=== PATIENT | female | born 1960 | race Caucasian/White ===

== ENCOUNTER 2021-04-27 06:20 | Day surgery (SDC) | payer BC ==
[~2021-04-27] VITALS: Ht 167.6 cm; Wt 95.7 kg
[~2021-04-27 06:20] MED LIST: 3IN1 COMMODE; ACETAMINOPHEN-1 EAC1 PO; ARMOUR THYROID120 MG PO; ARMOUR THYROID90 MG PO; AVAPRO150 MG PO; BENADRYL25 MG PO; CARAFATE1 GM PO; COZAAR50 MG PO; DHEA 10 MG TAB1 EACH PO; DHEA TABLET1 EACH PO; DIAZEPAM5 MG PO; FLONASE ALLERG9.9 ML NAS; IMITREX100 MG PO; MAGNESIUM OXID400 M1 PO; MELOXICAM15 MG PO; METOPROLOL SUCC50 MG PO; MOBIC7.5 MG PO; NATURE-THROID130 MG PO; PREVACID30 MG PO; PROGESTERONE100 MG PO; PROPAFENONE HC300 MG; PROTONIX40 MG PO; RANITIDINE HCL300 MG PO; RED YEAST RICE600 MG PO; TURMERIC500 M2 PO; TYLENOL WITH C1 EACH PO; VALIUM5 MG PO; WESTHROID PO; XARELTO20 MG PO; ZYRTEC10 MG PO
--- NOTE | 2021-04-27 07:58 | NUR ---
04/27/21 0758 Esme Lagunas 0753-PATIENT ARRIVED TO PACU ON 3L NC REACTIVE TO VERBAL STIMULI DENIES PAIN OR NAUSEA. PLACED ON 2L NC. PATIENT LAYING LEFT LATERAL ABDOMEN SOFT. IV TAPED TO ARM AND INFUSING. NEW 20 GAUGE WAS PLACED IN ENDO ROOM. ENCOURAGED TO PASS GAS. PATIENT DOZES BACK TO SLEEP. PATIENT USES CPAP AT HOME.
--- NOTE | 2021-04-27 08:49 | OR ---
[facility] [address], [place] [address] Signed DATE OF OPERATION: 04/27/2021 SURGEON: Martin Sutton MD PREOPERATIVE DIAGNOSES: 1. Sister with a 1.8 mm rectal carcinoid and colonic polyps, age 62. 2. Maternal aunt with colon cancer in her 70s. 3. Diverticulosis. 4. Personal history of hyperplastic polyps 2012. 5. Irritable bowel syndrome with constipation and diarrhea. POSTOPERATIVE DIAGNOSES: 1. 4 mm polyp at 7 cm. 2. Mild to moderate pandiverticulosis. PROCEDURE: Colonoscopy without biopsy. ESTIMATED BLOOD LOSS: None. INDICATIONS: Jose is a 61-year-old female asked to see me for a followup colonoscopy. She actually developed diverticulitis at the age of 36. She said she was drinking and smoking heavily in those days. She remembers her flexible sigmoidoscopy performed by Dr. Lynch in [place], [place]. In 2008, she had both upper and lower endoscopy with Dr. Godfrey in [place], [place]. She had erosive gastritis from her ibuprofen and was H pylori negative. She also had diverticulosis. She had propofol at that time. I helped her with upper and lower endoscopy in 2012. Again, minimal gastritis and negative H pylori. She had hyperplastic polyps in the colon or rectum. She had done well with Versed and fentanyl. We asked her to follow up in 10 years time given those findings. She had a barium swallow in 2015 with minimal reflux, but no obvious hiatal hernia. I repeated the upper endoscopy in 2015 and again mild inflammation in the duodenum and her stomach and her distal esophagus. Also negative for H pylori. She did well with Versed and fentanyl. In the meantime, she stopped all her stomach medication and says she is doing fine. She describes irritable bowel syndrome with alternating constipation and diarrhea. She reminded me of her sister who had a colonoscopy with myself earlier in this year. Her sister is age 62 with colonic polyps and diverticulosis. She also had a tiny 1.8 mm rectal carcinoid tumor in the rectum that we removed endoscopically. Her maternal aunt also had colon cancer in her 70s. As a result, Jose now is on the Electronically Signed By: MARTIN SUTTON MD 04/27/21 0849 PATIENT NAME: JOSE BOURNE OPERATIVE REPORT DATE OF : 60 REPORT #: [id number] PHYSICIAN: MARTIN SUTTON MD PCP: LETICIA BECKER REPORT IS CONFIDENTIAL AND NOT TO BE RELEASED WITHOUT AUTHORIZATION [facility] [address], [place] [address] Signed five-year colonoscopy rotation. She felt like she had a flare of her left lower quadrant abdominal pain in November 2020. She took Cipro and Flagyl. Her symptoms resolved. However, she stopped the Flagyl after five days because she felt she was having nausea and vomiting. Currently, she has no lower GI complaints. In the office, I gave her a pamphlet on colonoscopy. She understands the nature of the test. There is risk including, but not limited to gas bloating, crampy abdominal pain, bleeding, perforation requiring surgery, and missed diagnosis. She also understands the need for the IV conscious sedation. She had expressed understanding and wished to proceed. PROCEDURE NOTE: Jose was taken into our endoscopy suite and placed in the left lateral decubitus position. She was given a total of 150 mcg of fentanyl and 7 mg of Versed to cover the case. We had a little trouble with our IV during the middle of the case. We started a new IV and therefore she was a little vague at that time. A digital rectal exam was performed and this was unremarkable. She had good sphincter tone. The adult colonoscope was introduced and she had just a tiny 4 mm polyp at 7 cm removed with a hot biopsy forceps. The scope had been advanced all around into the cecum without difficulty. Her prep was good. We could easily see the appendiceal orifice and ileocecal valve. The scope was then slowly withdrawn. She does have mild to moderate pandiverticulosis. They are few in number, moderate in size and scattered about. The scope had been retroflexed in the rectum and there was no additional pathology noted above the anal canal. After this, the gas was suctioned out and colonoscope removed. Camilla tolerated the procedure quite well. RECOMMENDATIONS: It appears Jose will be on the 5-year rotation mainly from her family history. Martin Sutton MD ALB/MODL /[id number] cc: CURLY Ayala MD Electronically Signed By: MARTIN SUTTON MD 04/27/21 0849 PATIENT NAME: JOSE BOURNE OPERATIVE REPORT DATE OF : 60 REPORT #: [id number] PHYSICIAN: MARTIN SUTTON MD PCP: LETICIA BECKER REPORT IS CONFIDENTIAL AND NOT TO BE RELEASED WITHOUT AUTHORIZATION [facility] [address] [place], [place] [address] Signed Copies: LETICIA BECKER ANDREW L MD ~ Electronically Signed By: MARTIN SUTTON MD 04/27/21 0849 PATIENT NAME: JOSE BOURNE OPERATIVE REPORT DATE OF : 60 REPORT #: [id number] PHYSICIAN: MARTIN SUTTON MD PCP: LETICIA BECKER REPORT IS CONFIDENTIAL AND NOT TO BE RELEASED WITHOUT AUTHORIZATION
--- NOTE | 2021-04-27 11:38 | NUR ---
PT ALERT, ORIENTED AND SUPPORTED BY HER . PT HAS HAD SCOPE PREVIOUS, SEEMS PREPARED. ALL QUESTIONS ASKED ANSWERED. GAVE BLESSING, WILL FOLLOW.
--- NOTE | 2021-04-28 12:01 | PATH ---
[facility] [address] [place], [place] [address] Signed SPECIMEN(S): A COLON POLYP AT 7 CM SPECIMEN SOURCE: A. COLON POLYP AT 7 CM CLINICAL HISTORY: Family history colon cancer and polyps. Personal history polyps, diverticulosis. Postop: Rectal polyp, alvarez-diverticulosis. FINAL PATHOLOGIC DIAGNOSIS: Colon, polyp at 7 cm, polypectomy: - Hyperplastic polyp. - Negative for dysplasia or malignancy. NAL:cml:C2NR MICROSCOPIC EXAMINATION: Histologic sections of all submitted blocks are examined by light microscopy. These findings, together with the gross examination, support the pathologic diagnosis. GROSS DESCRIPTION: The specimen, labeled "KW, 1," and designated on the requisition "colon polypectomy 7 cm," is received in formalin and consists of 2 aggarwal-white, red freckled soft tissue fragment(s) that measure 0.3 and 0.7 cm in greatest dimension. The specimen is entirely submitted in cassette (A1). AI (under the direct supervision of a pathologist) The Gross Description was prepared using a voice recognition system. The report was reviewed for accuracy; however, sound-alike word errors, addition and/or deletions may occur. If there is any question about this report, please contact Client Services. PERFORMING LABORATORY: The technical component was performed by [facility] [employer], [address] [place] [id number] (Oil Spot Washer: Veronica Cilfton MD; CLIA# [id number]). [facility] [address] [address] (CLIA# [id number]). Diagnostician: Niurka Rivera MD Pathologist PATIENT NAME: JOSE BOURNE PATHOLOGY DATE OF : 60 REPORT #: [id number] PHYSICIAN: [facility] PCP: LETICIA BECKRE REPORT IS CONFIDENTIAL AND NOT TO BE RELEASED WITHOUT AUTHORIZATION [address] [address] Signed Electronically Signed 04/28/2021 Copies: ~ PATIENT NAME: JOSE BOURNE PATHOLOGY DATE OF : 60 REPORT #: [id number] PHYSICIAN: [facility] PCP: LETICIA BECKER REPORT IS CONFIDENTIAL AND NOT TO BE RELEASED WITHOUT AUTHORIZATION
== END 2021-04-27 08:45 | disposition home or self-care (01) ==
LOC: DS 06:20
PROVIDERS: ATTEND Colon & Rectal Surgery
PROC: 0DBE8ZZ Excision of Large Intestine, Via Natural or Artificial Opening Endoscopic (ICD-10-PCS; principal; 2021-04-27 07:30)
DX: K58.2 Mixed irritable bowel syndrome (principal); K63.5 Polyp of colon; K57.30 Diverticulosis of large intestine without perforation or abscess without bleeding; J45.909 Unspecified asthma, uncomplicated; I10 Essential (primary) hypertension; I48.0 Paroxysmal atrial fibrillation; Z80.0 Family history of malignant neoplasm of digestive organs; Z87.19 Personal history of other diseases of the digestive system; Z83.71 Family history of colonic polyps; Z87.891 Personal history of nicotine dependence; Z88.2 Allergy status to sulfonamides; Z88.1 Allergy status to other antibiotic agents; Z88.8 Allergy status to other drugs, medicaments and biological substances
CPT/HCPCS: 99153; G0500; J0690; J2250; J3010; J7121